=== PATIENT | female | born 1945 | race Caucasian/White ===

== ENCOUNTER 2023-06-22 15:40 | Emergency (ER) | payer MEDICARE, OTHER, SELFPAY ==
[2023-06-22 15:41] VITALS: BMI 25.6
[2023-06-22 15:47] VITALS: BP 149/78
[2023-06-22 16:26] LABS: % Basophils 0.6 % (0-2); % Eosinophils 1.8 % (0-6); % Immature Granulocytes 0.2 % (0-0.5); % Lymphocytes 18.1 % (20.5-51.1); % Monocytes 7.3 % (1.7-9.3); Absolute Basophils 0.1 10^3/uL (0-0.2); Absolute Eosinophils 0.2 10^3/uL (0-0.7); Absolute Lymphocytes 1.5 10^3/uL (1.2-3.4); Absolute Monocytes 0.6 10^3/uL (0.1-0.6); Absolute Neutrophils 6.1 10^3/uL (1.4-6.5); Hematocrit 36.7 % (37.0-47.0); Hemoglobin 12.4 g/dL (12.0-16.0); Mean Corp Hgb Conc. 33.8 g/dL (33.0-37.0); Mean Corpuscular Hgb 29.2 pg (27.0-31.0); Mean Corpuscular Volume 86.4 fL (81.0-99.0); Nucleated Red Blood Cells % 0 %; Platelet Count 279 10^3/uL (130-400); Red Blood Cell Count 4.25 10^6/uL (4.20-5.40); Red Cell Dist. Width 13.8 % (11.5-14.5); White Blood Cell Count 8.5 10^3/uL (4.8-10.8)
[2023-06-22] MEDS: OMNIPAQUE 50 ML PO (16:28)
[2023-06-22 16:29] LABS: Urine Albumin Negative (Neg - Trace); Urine Bilirubin Negative (Negative); Urine Character Clear (Clear); Urine Color Yellow; Urine Glucose 1+ (Negative); Urine Ketone Negative (Negative); Urine Leukocyte Negative (Negative); Urine Nitrite Negative (Negative); Urine Occult Blood 1+ (Negative); Urine Specific Gravity 1.025 (<1.030); Urine Urobilinogen Negative (Neg - 1+)
[2023-06-22 16:35] LABS: Urine Red Blood Cell 0-2 /HPF (0-2); Urine Urothelial Cell 0-2 /LPF (FEW)
[2023-06-22 16:38] LABS: ALT (SGPT) 30 U/L (0-35); AST (SGOT) 31 U/L (14-36); Albumin 4.4 g/dl (3.5-5.0); Alkaline Phosphatase 89 U/L (38-126); Blood Urea Nitrogen 22 mg/dl (7-17); Calcium 9.9 mg/dl (8.4-10.2); Carbon Dioxide 26 mmol/L (22-30); Chloride 104 mmol/L (98-107); Estimated Creatinine Clearance 53 ml/min; Glucose 103 mg/dl (70-99); Potassium 4.4 mmol/L (3.5-5.1); Sodium 137 mmol/L (135-145); Total Bilirubin 0.4 mg/dl (0.2-1.3); Total Protein 7.3 g/dl (6.3-8.2); eGFR > 60.00
[2023-06-22 16:44] LABS: Lipase 124 U/L (23-300)
[2023-06-22 19:04] VITALS: BP 137/71
[2023-06-22 20:11] VITALS: BP 127/87
--- NOTE | 2023-06-22 23:43 | ED.GENMED ---
History of Present Illness
General
Chief Complaint: Abdominal Pain
Source: patient
Exam Limitations: none
Time Seen by Provider: 06/22/23 15:55
Nursing documentation reviewed up to this point in time: agreed with
Travel History
Have you had any contact with someone who has COVID-19?: No
Do you have any symptoms of coronavirus? Fever > 100 degrees, chills, cough, shortness of breath, sore throat, loss of taste or smell, muscle aches, or headache?: No
History of Present Illness
History of Present Illness:
Patient to ED with complaint of diffuse abdominal pain. Pain has been ongoing for many months. States it was most intense after eating but now is not triggered or relieved by food. No Fever/chills, n/v/d. Brought to ED by daughter for eval.
Past History
Past History
ED Past Medical History: Hypercholesterolemia
ED Past Surgical History: Negative Cardiac
Social History
Tobacco: Non-smoker
Alcohol: Occasional
Drug: None
Personal:
Living: with family
Employment: Retired
Family History
Family History: Negative Early CAD
Review of Systems
Review of Systems
Allergies reviewed?: Yes
All Other Systems: ROS reviewed and negative except as documented in HPI and ROS
Constitutional: Reports no symptoms
EENT: Reports no symptoms
Respiratory: Reports no symptoms
Cardiac: Reports no symptoms
ABD/GI: Reports abdominal pain
: Reports no symptoms
Psychiatric: Reports no symptoms
Phy Exam
General Physical Exam
General Presentation: well appearing and no apparent distress
General age: appears stated age
General Skin: warm and dry
General Habitus: normal
General Mental: alert
General Hydration: appears well hydrated
Cardiovascular Exam
Cardiovascular Exam: regular rate/rhythm and no edema
Pulmonary Exam
Pulmonary Exam: lungs clear and no respiratory distress
Gastrointestinal Exam
Gastrointestinal Exam: normal bowel sounds, soft, no organomegaly and non distended
Palpation: generalized: Moderate tenderness
Musculoskeletal Exam
Musculoskeletal Exam: full ROM and neuro vasc intact
Skin Exam
Skin Exam: normal color, warm/dry and no rash
Psychiatric Exam
Psychiatric Exam: normal mood/affect
Course
Orders/Labs/Results
Orders:
Orders
06/22/23 16:15
Complete Blood Count/With Diff Urgent
Comprehensive Metabolic Panel Urgent
Lipase Urgent
Urinalysis Reflex To Culture Urgent
Date Specimen was Collected: 06/22/23
Time Specimen was Collected: 16:06
Urine Microscopic Reflex Cult Urgent
06/22/23 16:18
CT Abd/pel W Iv And Oral Contr Urgent
Comment:
Reason For Exam: diffuse pain
Iohexol [Omnipaque] See Protocol PO NOW STA
Abnormal Lab Results
06/22/23
16:15
Hct 36.7 L %
(37.0-47.0)
Lymphocytes % 18.1 L %
(20.5-51.1)
BUN 22 H mg/dl
(7-17)
Glucose 103 H mg/dl
(70-99)
Ur Occult Blood Reflex 1+ A
(Negative)
Urine Glucose 1+ A
(Negative)
06/22/23 16:15
06/22/23 16:15
Vital Signs
Initial and Last Documented VS:
Initial Vital Signs
Temp Pulse Resp BP Pulse Ox
97.9 F 73 20 149/78 96
06/22/23 15:47 06/22/23 15:47 06/22/23 15:47 06/22/23 15:47 06/22/23 15:47
Last Documented Vital Signs
Temp Pulse Resp BP Pulse Ox
97.9 F 79 18 127/87 97
06/22/23 15:47 04/21/24 20:11 06/22/23 20:11 06/22/23 20:11 06/22/23 20:11
*Radiology
Radiology exam reviewed: radiology read reviewed
*Pulse Oximetry
Patient hypoxic: no
*Critical Care Note
Total Time (30-74mins, 75-104mins- exclusive of procedures): Not Applicable
ED Attending Note
-
Portions of this chart may have been created with voice recognition software.� Occasional wrong word or��sound alike� substitutions may have occurred due to the inherent limitations of voice recognition software.
Discharge Plan
Departure
Patient Disposition: Home (Routine Discharge)
Date of Disposition: 06/22/23
Time of Disposition: 19:54
Patient with high blood pressure during this ER visit?: No
Condition: Good
Covid-19: Not Applicable
Discharge Problem:
Abdominal pain
Instructions: Abdominal Pain
Prescriptions:
No Action
albuterol sulfate [Proventil HFA] 90 MCG/PUFF HFA aerosol inhaler
1 puff inhalation Q4HPRN PRN (Reason: shortness of breath) Qty: 1 0RF
methylprednisolone [Medrol (Boris)] 4 MG tablets,dose pack
4 tab PO . DIRECT Qty: 1 0RF
prednisone 10 MG tablet
10 mg PO .TAPER Qty: 26 0RF
Rx Instructions:
Take 40mg daily x3days, 30mg daily x3days,
20mg daily x3days, 10mg daily x3days.
prednisone 10 mg Tablet
See Rx Instructions .ROUTE .COMPLEX Qty: 30 0RF
Rx Instructions:
Take By Mouth:
40 mg daily x3 days, 30 mg daily x3 days,
20 mg daily x3 days, 10 mg daily x3 days.
Referrals:
Janis Paul CRNP [Family Provider] -
Sharon Meek MD [Active] - Call in 1-3 days for appt
Interventions
Interventions:
*Risk Screen - Suicide Last Done: 06/22/23 19:05
*General Assessment Last Done: 06/22/23 19:05
*Neglect/Abuse Screening Last Done: 06/22/23 19:05
ED- Fall Risk Assessment Last Done: 06/22/23 19:05
*ED COVID-19 Vaccine History Last Done: 06/22/23 20:11
*Nursing Disposition Last Done: 06/22/23 20:11
[facility] Assessment Last Done: 06/22/23 19:05
Discharge Date and Time
Discharge Date/Time: 06/22/23 20:12
Print Language: BRUNEIAN
== END 2023-06-22 20:12 | disposition home or self-care (01) ==
LOC: EMR 15:40
PROVIDERS: Nurse Practitioner; EMERGENCY PHYSICIAN Emergency Medicine; FAMILY PHYSICIAN Nurse Practitioner Family
DX: R10.9 Unspecified abdominal pain (principal)
CPT/HCPCS: 99285; 74177; 80053; 81003; 81015; 83690; 85025; Q9967

== ENCOUNTER → 2023-10-22 11:29 | Outpatient (REF) | payer MEDICARE, OTHER, SELFPAY ==
[2023-10-22 13:03] LABS: % Basophils 0.6 % (0-2); % Eosinophils 2.4 % (0-6); % Immature Granulocytes 0.2 % (0-0.5); % Lymphocytes 18.9 % (20.5-51.1); % Monocytes 7.5 % (1.7-9.3); % Neutrophils 70.4 % (42.2-75.2); Absolute Basophils 0.1 10^3/uL (0-0.2); Absolute Eosinophils 0.2 10^3/uL (0-0.7); Absolute Lymphocytes 1.6 10^3/uL (1.2-3.4); Absolute Monocytes 0.6 10^3/uL (0.1-0.6); Hematocrit 37.4 % (37.0-47.0); Hemoglobin 12.3 g/dL (12.0-16.0); Mean Corp Hgb Conc. 32.9 g/dL (33.0-37.0); Mean Corpuscular Hgb 28.8 pg (27.0-31.0); Mean Corpuscular Volume 87.6 fL (81.0-99.0); Mean Platelet Volume 10.5 fL (7.4-10.4); Nucleated Red Blood Cells % 0 %; Platelet Count 297 10^3/uL (130-400); Red Blood Cell Count 4.27 10^6/uL (4.20-5.40); Red Cell Dist. Width 13.7 % (11.5-14.5); White Blood Cell Count 8.5 10^3/uL (4.8-10.8)
[2023-10-22 13:37] LABS: Urine Albumin Negative (Neg - Trace); Urine Bilirubin Negative (Negative); Urine Character Clear (Clear); Urine Color Yellow; Urine Glucose Negative (Negative); Urine Ketone Negative (Negative); Urine Leukocyte Negative (Negative); Urine Nitrite Negative (Negative); Urine Occult Blood Negative (Negative); Urine Urobilinogen Negative (Neg - 1+)
[2023-10-22 14:37] LABS: Glycohemoglobin (HgbA1c) 6.5 % (4.0-5.6)
[2023-10-22 15:43] LABS: ALT (SGPT) 32 U/L (0-35); AST (SGOT) 31 U/L (14-36); Albumin 4.1 g/dl (3.5-5.0); Alkaline Phosphatase 103 U/L (38-126); Blood Urea Nitrogen 18 mg/dl (7-17); Calcium 9.7 mg/dl (8.4-10.2); Carbon Dioxide 30 mmol/L (22-30); Chloride 103 mmol/L (98-107); Glucose 95 mg/dl (70-99); HDL Cholesterol 49 mg/dl; LDL Cholesterol, Calculated 128 mg/dl; Potassium 4.9 mmol/L (3.5-5.1); Sodium 136 mmol/L (135-145); Total Bilirubin 0.8 mg/dl (0.2-1.3); Total Cholesterol 208 mg/dl (50-199); Total Protein 6.8 g/dl (6.3-8.2); Triglyceride 155 mg/dl (10-149); Very Low Density Lipoprotein 31 mg/dl (0-30); eGFR > 60.00
== END ==
LOC: REG 11:29
PROVIDERS: ATTENDING PHYSICIAN Nurse Practitioner Family
DX: R73.03 Prediabetes (principal); Z13.89 Encounter for screening for other disorder; Z13.0 Encounter for screening for diseases of the blood and blood-forming organs and certain disorders involving the immune mechanism; E78.2 Mixed hyperlipidemia; F33.0 Major depressive disorder, recurrent, mild
CPT/HCPCS: 36415; 80053; 80061; 81003; 83036; 85025

== ENCOUNTER → 2023-11-20 11:16 | Outpatient (REF) | payer MEDICARE, OTHER, SELFPAY | LOC: HWRAD 11:16 | PROVIDERS: ATTENDING PHYSICIAN Internal Medicine Gastroenterology; FAMILY PHYSICIAN Nurse Practitioner Family | DX: R10.10 Upper abdominal pain, unspecified (principal) | CPT/HCPCS: 76700 ==

== ENCOUNTER → 2024-01-19 06:29 | Day surgery (SDC) | payer MEDICARE, OTHER, SELFPAY | LOC: GI 06:29 | PROVIDERS: ATTENDING PHYSICIAN Internal Medicine Gastroenterology | DX: R10.10 Upper abdominal pain, unspecified (principal); K22.89 Other specified disease of esophagus; K22.2 Esophageal obstruction; K44.9 Diaphragmatic hernia without obstruction or gangrene; K31.7 Polyp of stomach and duodenum; K31.A0 Gastric intestinal metaplasia, unspecified; K20.80 Other esophagitis without bleeding; D13.2 Benign neoplasm of duodenum | CPT/HCPCS: 43251; 43239; 88305; 88342 ==

== ENCOUNTER → 2024-05-04 10:57 | Outpatient (REF) | payer MEDICARE, OTHER, SELFPAY | LOC: RAD 10:57 | PROVIDERS: ATTENDING PHYSICIAN Surgery; FAMILY PHYSICIAN Nurse Practitioner Family | DX: K44.9 Diaphragmatic hernia without obstruction or gangrene (principal) | CPT/HCPCS: 74246 ==

== ENCOUNTER 2024-06-08 11:56 | Emergency (ER) | payer MEDICARE, OTHER, SELFPAY ==
[2024-06-08 11:58] VITALS: BP 165/87
[2024-06-08 12:39] LABS: % Basophils 0.5 % (0-2); % Eosinophils 1.4 % (0-6); % Immature Granulocytes 0.2 % (0-0.5); % Lymphocytes 17.8 % (20.5-51.1); % Monocytes 7.9 % (1.7-9.3); % Neutrophils 72.2 % (42.2-75.2); Absolute Eosinophils 0.1 10^3/uL (0-0.7); Absolute Lymphocytes 1.5 10^3/uL (1.2-3.4); Absolute Monocytes 0.7 10^3/uL (0.1-0.6); Hematocrit 37.4 % (37.0-47.0); Hemoglobin 12.4 g/dL (12.0-16.0); Mean Corp Hgb Conc. 33.2 g/dL (33.0-37.0); Mean Corpuscular Hgb 28.8 pg (27.0-31.0); Nucleated Red Blood Cells % 0 %; Platelet Count 267 10^3/uL (130-400); Red Cell Dist. Width 13.7 % (11.5-14.5); White Blood Cell Count 8.3 10^3/uL (4.8-10.8)
[2024-06-08 12:55] LABS: ALT (SGPT) 27 U/L (0-35); AST (SGOT) 26 U/L (14-36); Albumin 4.2 g/dl (3.5-5.0); Alkaline Phosphatase 101 U/L (38-126); Blood Urea Nitrogen 23 mg/dl (7-17); Calcium 9.7 mg/dl (8.4-10.2); Carbon Dioxide 28 mmol/L (22-30); Chloride 104 mmol/L (98-107); Glucose 116 mg/dl (70-99); Potassium 4.6 mmol/L (3.5-5.1); Sodium 139 mmol/L (135-145); Total Bilirubin 0.4 mg/dl (0.2-1.3); eGFR > 60.00
[2024-06-08 13:01] LABS: NT-proBNP 63.1 pg/ml; Troponin I 0.016 ng/ml
[2024-06-08 14:29] VITALS: BMI 31.3
[2024-06-08 14:30] VITALS: BP 135/84
--- NOTE | 2024-06-08 14:59 | ED.GENMED ---
History of Present Illness
<ELVA Bentley - Last Filed: 06/09/24 06:34>
General
Chief Complaint: Breathing Problem
Source: patient
Exam Limitations: none
Time Seen by Provider: 06/08/24 14:49
Nursing documentation reviewed up to this point in time: agreed with except (Family reports that shortness of breath has been occurring months not days)
History of Present Illness
History of Present Illness:
79 yr old female with past medical history brought to the ER by daughter and caregiver. Daughter reports patient has dementia however for past several months patient has had progressing worsening shortness of breath with exertion. They report when
she even bends over to tie her shoes she will wheeze. She has no underlying cardiac or pulmonary issues that they are aware of. They are scheduled to see a sole molder in August however with persistent symptoms she was taken again to the family
doctor. Daughter reports they did an EKG which was abnormal and they sent patient here to the ER.
Pt is a limited historian due to her dementia. She however denies any chest pain or shortness of breath now. Family reports no lower extremity swelling.
Past History
<ELVA Bentley - Last Filed: 06/09/24 06:34>
Past History
ED Past Medical History: Hypercholesterolemia
ED Past Surgical History: Negative Cardiac
Social History
Tobacco: Non-smoker
Alcohol: Occasional
Drug: None
Personal:
Living: with family
Employment: Retired
Family History
Family History: Negative Early CAD
Review of Systems
<ELVA Bentley - Last Filed: 06/09/24 06:34>
Review of Systems
Allergies reviewed?: Yes
Other source history: family
All Other Systems: ROS reviewed and negative except as documented in HPI and ROS
Constitutional: Reports no symptoms; Denies fever, fatigue or chills
Respiratory: Reports trouble breathing (shortness of breath as per family )
Cardiac: Reports no symptoms
ABD/GI: Reports no symptoms
: Reports no symptoms
Musculoskeletal: Reports no symptoms
Skin: Reports no symptoms
Neurological: Reports no symptoms
Hematologic/Lymphatic: Reports no symptoms
Psychiatric: Reports no symptoms
Phy Exam
<ELVA Bentley - Last Filed: 06/09/24 06:34>
General Physical Exam
General Presentation: no apparent distress
General age: appears stated age
General Skin: warm and dry
General Habitus: normal
General Mental: alert
General Hydration: appears well hydrated
Cardiovascular Exam
Cardiovascular Exam: regular rate/rhythm, no murmur and normal peripheral pulses
Pulmonary Exam
Pulmonary Exam: lungs clear and no respiratory distress
Neurological Exam
Neurological Exam: alert
Musculoskeletal Exam
Musculoskeletal Exam: full ROM
Skin Exam
Skin Exam: normal color and warm/dry
Psychiatric Exam
Psychiatric Exam: normal mood/affect
Scores
<ELVA Bentley - Last Filed: 06/09/24 06:34>
Heart Failure Risk
Heart Failure Risk Score: Not Applicable
Course
<ELVA Bentley - Last Filed: 06/09/24 06:34>
Orders/Labs/Results
Orders:
Orders
06/08/24 11:57
EKG [Electrocardiogram (*1)] Urgent
Reason for Study: Shortness of Breath
EKG- Treatment ONCE
06/08/24 12:22
Complete Blood Count/With Diff Urgent
Comprehensive Metabolic Panel Urgent
Pro-BNP [NT-proBNP] Urgent
Troponin I Urgent
06/08/24 15:13
Chest [CR Chest - 2 Views ] Urgent
Comment:
Reason For Exam: sob
06/08/24 17:10
CT Chest PE Study Urgent
Comment:
Reason For Exam: sob
Abnormal Lab Results
06/08/24
12:22
Absolute Monos (auto) 0.7 H 10^3/uL
(0.1-0.6)
Lymphocytes % 17.8 L %
(20.5-51.1)
BUN 23 H mg/dl
(7-17)
Glucose 116 H mg/dl
(70-99)
06/08/24 12:22
06/08/24 12:22
Vital Signs
Initial and Last Documented VS:
Initial Vital Signs
Temp Pulse Resp BP Pulse Ox
97.7 F 60 16 165/87 99
06/08/24 11:58 06/08/24 11:58 06/08/24 11:58 06/08/24 11:58 06/08/24 11:58
Last Documented Vital Signs
Temp Pulse Resp BP Pulse Ox
97.7 F 66 15 151/85 97
06/08/24 11:58 06/08/24 15:15 06/08/24 15:15 06/08/24 19:13 06/08/24 19:14
Collection Technician consulted with Physician
Collection Technician consulted with physician?: Yes
Name of Physician Consulted: Denisha
<Rajesh Denny MD - Last Filed: 06/09/24 00:10>
Orders/Labs/Results
Orders:
Orders
06/08/24 11:57
EKG [Electrocardiogram (*1)] Urgent
Reason for Study: Shortness of Breath
EKG- Treatment ONCE
06/08/24 12:22
Complete Blood Count/With Diff Urgent
Comprehensive Metabolic Panel Urgent
Pro-BNP [NT-proBNP] Urgent
Troponin I Urgent
06/08/24 15:13
Chest [CR Chest - 2 Views ] Urgent
Comment:
Reason For Exam: sob
06/08/24 17:10
CT Chest PE Study Urgent
Comment:
Reason For Exam: sob
Abnormal Lab Results
06/08/24
12:22
Absolute Monos (auto) 0.7 H 10^3/uL
(0.1-0.6)
Lymphocytes % 17.8 L %
(20.5-51.1)
BUN 23 H mg/dl
(7-17)
Glucose 116 H mg/dl
(70-99)
06/08/24 12:22
06/08/24 12:22
Vital Signs
Initial and Last Documented VS:
Initial Vital Signs
Temp Pulse Resp BP Pulse Ox
97.7 F 60 16 165/87 99
06/08/24 11:58 06/08/24 11:58 06/08/24 11:58 06/08/24 11:58 06/08/24 11:58
Last Documented Vital Signs
Temp Pulse Resp BP Pulse Ox
97.7 F 66 15 151/85 97
06/08/24 11:58 06/08/24 15:15 06/08/24 15:15 06/08/24 19:13 06/08/24 19:14
<ELVA Bentley - Last Filed: 06/09/24 06:34>
MDM/Problems Addressed
MDM/Problems Addressed:
As documented patient is a 79-year-old female that was brought to the ER by family family reports patient is been short of breath for months and has a sole molder appointment that is not scheduled until August. She has no cardiac history. They went
to her family doctor today and EKG was apparently abnormal and they were sent here to the ER. Patient does have dementia but is able to give some history and denies any complaints of pain or shortness of breath now. They report shortness of breath
is not new but has been months worse when she walks or bends over. No lower extremity swelling no history of heart failure. Patient presents awake alert no acute distress lungs are clear nontachycardic nontachypneic no obvious swelling no chest
pain or shortness of breath presently negative card troponin; no acute findings on ekg negative proBNP.
case d/c with DR Denny with complaints of shortness of breath for the past several months with no other acute causes found here in the ER will order CT to ensure no PE and then plan to discharge with cardiology follow-up if negative.
I did review this with family at bedside.
<ELVA Bentley - Last Filed: 06/09/24 06:34>
*Radiology
Radiology exam reviewed: radiology read reviewed
*Pulse Oximetry
Patient hypoxic: no
*EKG
Interpreted by ED Provider?: Yes
Interpretation: abnormal
Comparison EKG: no changes
Heart Rate: 60
Rate: normal
Rhythm: sinus
Ischemia: non-specific ST changes (similar to prior )
*Critical Care Note
Total Time (30-74mins, 75-104mins- exclusive of procedures): Not Applicable
ED Attending Note
<ELVA Bentley - Last Filed: 06/09/24 06:34>
-
Portions of this chart may have been created with voice recognition software.� Occasional wrong word or��sound alike� substitutions may have occurred due to the inherent limitations of voice recognition software.
<Rajesh Denny MD - Last Filed: 06/09/24 00:10>
ED Attending Note
Patient seen and examined by attending physician: Yes
ED Attending Note:
I have seen and evaluated the patient with a [id number] encounter. I have spoken to the advance practicer provider and involved in the medical history, the physical exam, medical decision making.
Evaluation and management service: agree unless noted differently below.
Results interpretation: agree unless noted differently below.
Focused HPI: 79-year-old female presents with her family for evaluation of shortness of breath. Patient reports symptoms have been ongoing for few months. She reports that they generally seem to be worsening. She seems to be okay when she gets
started but when she starts to exert herself she starts to have wheezing/shortness of breath. Typically is quite active and so the symptoms are distressing to her. She denies any chest pain. Denies any coughing. No fever or chills. No swelling
in the legs. Apparently she went to see her primary doctor and there was a question of some T wave changes on EKG and so she was referred to the ER. She is scheduled to see cardiology but not until July.
Physical exam: Awake alert no distress. Hypertensive otherwise normal vitals. Lungs sound clear to auscultation. No cardiac rubs gallops or murmurs. No significant edema in the legs.
Medical Decision Makin-year-old female presents for evaluation of shortness of breath/wheezing with exertion worsening for weeks to months. Vitals and exam as above. Labs sent off: CBC shows no anemia, CMP no clinically significant
abnormalities. Troponin undetectable. proBNP less than 100. She has no clinical signs of congestive heart failure. Chest x-ray showed no acute disease and follow-up CTA of the chest showed no PE or other acute abnormalities. Her EKG showed some
nonspecific T wave abnormalities but appears similar to prior. No clear emergent pathology at this point. Will refer for expedited cardiology follow-up and also for pulmonology follow-up as it sounds like there is a strong component of wheezing to
her symptoms although lungs sound clear today. Patient and family comfortable with this plan.
Discharge Plan
Departure
Patient Disposition: Home (Routine Discharge)
Date of Disposition: 06/08/24
Time of Disposition: 19:04
Patient with high blood pressure during this ER visit?: Yes
Condition: Fair
Covid-19: Not Applicable
Discharge Problem:
Acute dyspnea
Instructions: Shortness of Breath (Dyspnea) (DC), Chest Pain DCA Follow Up
Prescriptions:
No Action
albuterol sulfate [Proventil HFA] 90 MCG/PUFF HFA aerosol inhaler
1 puff inhalation Q4HPRN PRN (Reason: shortness of breath) Qty: 1 0RF
methylprednisolone [Medrol (Boris)] 4 MG tablets,dose pack
4 tab PO . DIRECT Qty: 1 0RF
prednisone 10 MG tablet
10 mg PO .TAPER Qty: 26 0RF
Rx Instructions:
Take 40mg daily x3days, 30mg daily x3days,
20mg daily x3days, 10mg daily x3days.
prednisone 10 mg Tablet
See Rx Instructions .ROUTE .COMPLEX Qty: 30 0RF
Rx Instructions:
Take By Mouth:
40 mg daily x3 days, 30 mg daily x3 days,
20 mg daily x3 days, 10 mg daily x3 days.
Referrals:
Janis Paul CRNP [Family Provider] -
Vielka Shukla DO [Active] - Call in 1-3 days for appt (Evaluation Advisor )
Wai Russo MD [Active] - Call in 1-3 days for appt
Activity Restrictions/Additional Instructions:
As discussed you were placed on the cardiac hotline. If you do not hear back from the office in the next several days please give the office a call to schedule an appointment as soon as possible return if any worsening of symptoms.
Interventions
Interventions:
*Risk Screen - Suicide Last Done: 06/08/24 14:30
*General Assessment Last Done: 06/08/24 14:30
*Neglect/Abuse Screening Last Done: 06/08/24 19:02
*ED- Fall Risk Assessment Last Done: 06/08/24 14:30
*ED COVID-19 Vaccine History Last Done: 06/08/24 14:30
*Nursing Disposition Last Done: 06/08/24 19:30
ED- Cardiac Assessment Last Done: 06/08/24 14:30
ED- Pulmonary Assessment Last Done: 06/08/24 14:30
Discharge Date and Time
Discharge Date/Time: 06/08/24 19:30
Print Language: [place]
[2024-06-08 15:00] VITALS: BP 128/75
[2024-06-08 19:13] VITALS: BP 151/85
== END 2024-06-08 19:30 | disposition home or self-care (01) ==
LOC: EMR 11:56
PROVIDERS: Emergency Medicine; EMERGENCY PHYSICIAN Emergency Medicine; FAMILY PHYSICIAN Nurse Practitioner Family
DX: R06.00 Dyspnea, unspecified (principal); E78.00 Pure hypercholesterolemia, unspecified; F03.90 Unspecified dementia, unspecified severity, without behavioral disturbance, psychotic disturbance, mood disturbance, and anxiety
CPT/HCPCS: 99285; 71046; 71275; 80053; 83880; 84484; 85025; 93005; Q9967

== ENCOUNTER → 2024-07-16 15:56 | Outpatient (REF) | payer MEDICARE, OTHER, SELFPAY | LOC: HWRCS 15:56 | PROVIDERS: ATTENDING PHYSICIAN Internal Medicine Cardiovascular Disease; FAMILY PHYSICIAN Nurse Practitioner Family | DX: R06.09 Other forms of dyspnea (principal); R94.31 Abnormal electrocardiogram [ECG] [EKG] | CPT/HCPCS: 93306 ==